=== PATIENT | female | born 2000 ===

== ENCOUNTER 2018-03-03 02:08 | Emergency (ER) | payer MEDICAID ==
--- NOTE | 2018-03-03 03:02 | OBHP ---
Datetime: 03/03/2018 02:50 IP Adm Impression: Postterm, intrauterine IP Admit Plan: Discharge home Admit Comment, IP Provider: 17 yo G1 at 40+3 wks w/ EDC 02/28/2018 by 9+ wk u/s who p/w ctxns that s tarted at 10pm, denies LOF, VB, and reports FM. Pt receices her PN care at [facility] in [place]. PMH: Healthy PSH: None Meds: PNV's All: NKDA Fam hx: M-lupus, HTN PGF DM Soc hx: Pt denies tobacco, alcohol, and illicit drugs [employer] hx: menarche at 6 yo, periods every 1-2 months, h/o chlamydia 01/2016 PE: Gen'l: appears comfortabel lying in stretcher Heart: RRR Chest: lungs CTA b/l Abd: soft, NT, gravid Ext: NT, no edema VE: closed/long/posterior A/P: 17 yo G1 at 40+3 wks w/ ctxns, not yet in labor NST reactive Pt discharged home w/ labor precautions Pt has an appoint at the clinic on , 03/03/2018 Rec that she call clinic on Sunday to schedule u/s for post-dates Extremities - PN: Normal Abdomen - PN: Normal Back - PN: Normal Lungs - PN: Normal Heart - PN: Normal General - PN: Normal FHR - Baseline A Provider: 130's Membranes, Provider: Intact Contraction Comments Provider: q3 EGA AdmitDate IP: 40.5 Vital Signs Provider: Reviewed IP Chief Complaint: Uterine contractions NICHD Variability Prov Fetus A: Moderate 6-25bpm NICHD Decel Fetus A IP Provider: None Dilatation, Provider: 0 Effacement, Provider: 0 Station, Provider: -3 Genitourinary Exam: Normal
[2018-03-03 07:10] VITALS: BP 119/64; PULSE 90
== END 2018-03-03 03:00 | disposition home or self-care (01) ==
LOC: H.EROB2 02:08 → H.EROB 02:15 → H.EROB2 03:00
DX: O47.1 False labor at or after 37 completed weeks of gestation (principal); Z3A.40 40 weeks gestation of pregnancy; O48.0 Post-term pregnancy

== ENCOUNTER 2018-03-03 22:44 | Inpatient (IN) | payer MEDICAID ==
[2018-03-04 00:15] VITALS: BMI 29.7
[2018-03-04] MEDS: Lactated Ringer's 1,000 ML IV SCH ×5 (00:27→08:50)
[2018-03-04 01:19] LABS: BASO % 0.1 % (0.0-2.0); HEMOGLOBIN 12.9 g/dL (12.0-16.0); LYMPH # 1.6 K/uL (1.0-4.3); LYMPH % 8.3 % (20.0-40.0); MEAN CELL VOLUME 84.9 fl (81.0-99.0); MEAN CORPUSCULAR HEMOGLOBIN 27.7 pg (27.0-31.0); MEAN CORPUSCULAR HGB CONC 32.6 g/dL (33.0-37.0); MEAN PLATELET VOLUME 9.8 fl (7.2-11.7); MONO # 0.8 K/uL (0.0-0.8); MONO % 4.2 % (0.0-10.0); NEUT # 16.7 K/uL (1.8-7.0); NEUT % 87.4 % (50.0-75.0); NRBC % 0.1 % (0.0-0.0); PLATELET COUNT 224 K/uL (130-400); RBC 4.64 Mil/uL (3.80-5.20); RED CELL DISTRIBUTION WIDTH 14.2 % (11.5-14.5); WHITE BLOOD COUNT 19.1 K/uL (4.8-10.8)
[2018-03-04] MEDS ORDERED: Fentanyl/Bupivacaine HCl 250 ML EPI ONE (01:47)
[2018-03-04 02:15] LABS: EOSINOPHIL 1 % (0-7); LYMPHOCYTE 7 % (20-50); MONOCYTE 6 % (0-10); NEUTROPHIL 84 % (42-75); REACTIVE LYMPHOCYTES 2 % (0-0); TOTAL CELLS COUNTED 100
[2018-03-04 02:16] LABS: PLATELET ESTIMATE NORMAL (NORMAL)
[2018-03-04 02:17] LABS: HYPOCHROMIC SLIGHT; POLYCHROMIC SLIGHT
[2018-03-04 02:18] LABS: LARGE PLATELETS PRESENT
[2018-03-04] MEDS ORDERED: Oxytocin 30 units/LR 500ML 30 U/500 ML BAG IV ONE ×2 (03:47→08:04)
--- NOTE | 2018-03-04 07:45 | OBADHP ---
Datetime: 03/04/2018 00:16 Admit Comment, IP Provider: CC: Ctx HPI: 17 YO @ 40.3wks IUP presents to [facility] for ctx. Per pt, ctx started last night and since t hen they have become more intense and more frequent. Pt was seen in [facility] this AM for ctx but was clos ed at that time, with occasional ctx. No LOF, good FM, no VB and + ctx. MD: Gay PMH: denies SurgH: denies FH: DM and HTN SH: denies ETOH, Smoking and illict drug use Allergies: bleach MEDs: PNV PE GEN: NAD Cardio: S1S2 no additional heart sounds Resp: clear breath sounds b/l Abdomen: BS+, NT, Gravid Neuro: AAO x 3 Ext: NT, no edema noted Cervx: 2-3/75/-3 bedside u/s: vertex A/P: 17 YO @ 40.3wks IUP is admitted for early labor, in pain. GBS neg, HIV neg, RPR neg. -admit patient L_D -IVF -blood work -anesthesiology consult for epidural -continue FM -vitals Pt progressing, cervix is effaced to 75-80%, continues to endorse pain with ctx. Will admit patien t. Start labor protocol. Will continue to monitor labor progression. Pt discussed with attending Dr. Christina Eduarda Kash, PGY I Addendum by Dr. Christina: I have evaluated the patient independently and I agree with the above Pelvic Type - PN: Adequate Extremities - PN: Normal Abdomen - PN: Normal Back - PN: Not Done Breast - PN: Not Done Lungs - PN: Normal Heart - PN: Normal Thyroid - PN: Not Done Neurologic - PN: Normal HEENT - PN: Normal General - PN: Normal FHR - Baseline A Provider: 140 Membranes, Provider: Intact Vital Signs Provider: Reviewed; Within Normal Limits NICHD Variability Prov Fetus A: Moderate 6-25bpm NICHD Accel Fetus A IP Provider: 15X15 FHR Category Provider Fetus A: Category I Dilatation, Provider: 2-3 Effacement, Provider: 75 Station, Provider: -3 Genitourinary Exam: Not Done DTRs - PN: Not Done EGA AdmitDate IP: 40.3 IP Adm Impression: Term, intrauterine Datetime: 03/03/2018 23:08 IP Chief Complaint: Uterine contractions; Suspected ruptured membranes IP Admit Plan: Observation/Evaluation Datetime: 03/03/2018 02:50 Contraction Comments Provider: q3 NICHD Decel Fetus A IP Provider: None
--- NOTE | 2018-03-04 08:50 | OBPN ---
Datetime: 03/04/2018 08:39 IP Progress Impression: Normal progression of labor IP Informed Consent Obtain: Vaginal Delivery IP Procedures: Sterile Vag Exam IP Progress Plan: Continue present management Contraction Comments Provider: q 4 FHR - Baseline A Provider: 140 IP Progress Note Comment: Patient evaluated and comfortable VE=8/100/-1 [id number] moce eliot, +accels, early decels A/P 1. Start Pitocin for augmentation 2. CEFM, TOCO 3. Re-evaluate as needed Vital Signs Provider: Reviewed; Within Normal Limits NICHD Accel Fetus A IP Provider: 15X15 NICHD Variability Prov Fetus A: Moderate 6-25bpm Dilatation, Provider: 8 Effacement, Provider: 100 Station, Provider: -1 NICHD Decel Fetus A IP Provider: Early Datetime: 03/04/2018 00:16 Membranes, Provider: Intact FHR Category Provider Fetus A: Category I
[2018-03-04] MEDS ORDERED: Oxycodone/Acetaminophen 5/325 mg Tab PO PRN ×3 (13:37→17:15)
[2018-03-04] MEDS: Oxycodone/Acetaminophen 5/325 mg Tab PO PRN (18:34)
[2018-03-05 06:24] LABS: BASO # 0.1 K/uL (0.0-0.2); BASO % 0.3 % (0.0-2.0); EOS % 0.1 % (0.0-4.0); LYMPH # 2.4 K/uL (1.0-4.3); LYMPH % 13.3 % (20.0-40.0); MEAN CELL VOLUME 84.4 fl (81.0-99.0); MEAN CORPUSCULAR HEMOGLOBIN 28.2 pg (27.0-31.0); MEAN CORPUSCULAR HGB CONC 33.4 g/dL (33.0-37.0); MEAN PLATELET VOLUME 8.9 fl (7.2-11.7); MONO # 1.4 K/uL (0.0-0.8); MONO % 8.2 % (0.0-10.0); NEUT # 13.9 K/uL (1.8-7.0); NEUT % 78.1 % (50.0-75.0); NRBC % 0.1 % (0.0-0.0); RBC 3.53 Mil/uL (3.80-5.20); RED CELL DISTRIBUTION WIDTH 14.2 % (11.5-14.5); WHITE BLOOD COUNT 17.7 K/uL (4.8-10.8)
[2018-03-05] MEDS ORDERED: Benzocaine/Menthol SPRAY ONE (21:21)
--- NOTE | 2018-03-05 23:09 | OBPPN ---
Datetime: 03/05/2018 06:46 PP Pain Prov: Within normal limits PP Nausea Prov: Denies PP Flatus Prov: No PP BM Prov: No PP Breasts Prov: Normal PP Heart Prov: Normal PP Lungs Prov: Normal PP Abdomen/Uterus Prov: Normal PP Lochia Prov: Normal PP Vulva/Perineum Prov: Normal PP CVA Tenderness Prov: Not Done PP Extremities Prov: Normal PP C/S Incision Prov: Not Applicable PP Progress Prov: Normal PP Impression Prov: Normal progression PP Plan Prov: Continue present management PP Progress Note Prov: S: 17 YO PPD1, s/p NVD. Pt is seen and examined by bedside this AM, baby and FOB by bedside. No acute overnight events. Pt is endorsing abdominal pain/soreness, but well con trolled with pain meds. Has ambulated to the bathroom with assistance. Bleeding has improved since cornelio, a little more then her menses. Tolerating PO diet. Has not yet had a BM and not yet passing flatus. Denies chest pain, dyspnea, n/v, fever/chills, diarrhea, nausea/vomiting, and calf pain. O: VS: wnl, afebrile GEN: Awake, alert and baby girl HEENT: EOMI, moist mucosa. LUNGS: CTA B/L, no wheezing, rhonci, or rales CVS: RRR, S1, S2 no murmurs ABD: ND, +BS, soft abdomen, firm fundus, below umbilicus. EXT: No edema, neg calf tenderness NEURO/PSYCHI: AAOx3, no grossly focal deficit, preserved affect and mood. Assessment/Plan: 17 YO PPD1, s/p VND on 03/04/18, gave to a baby girl. Pt remains afebril e, tolerating pain with medication, good PO intake and urinating without any difficulties. Doing well on PPD1. -C/w regular diet as tolerated. -OOB with caution SCDs for DVT prophylaxis -Ibuprofen 600 mg for pain prn -C/w Colace 100mg PO BID -Encourage and early ambulation. Eduarda Hewitt, PGY I OB Hospitalist note: Pt seen on rounds. Agree with PGY1 note MAHNDO Vital Signs Provider PP: Reviewed; Within Normal Limits
--- NOTE | 2018-03-06 07:51 | OBPPN ---
Datetime: 03/06/2018 05:48 PP Pain Prov: Within normal limits PP Nausea Prov: Denies PP Flatus Prov: Yes PP BM Prov: No PP Breasts Prov: Not Done PP Heart Prov: Normal PP Lungs Prov: Normal PP Abdomen/Uterus Prov: Normal PP Lochia Prov: Normal PP Vulva/Perineum Prov: Normal PP CVA Tenderness Prov: Not Done PP Extremities Prov: Normal PP C/S Incision Prov: Not Applicable PP Progress Prov: Normal PP Impression Prov: Normal progression PP Plan Prov: Continue present management; Discharge PP Progress Note Prov: S: 17 YO PPD2, s/p NVD. Pt is seen and examined this AM. FOB and baby by bedside. No acute overnight events. Pt is endorsing abdominal pain, but well controlled with pain me ds. Pt is ambulating without any difficulties. Bleeding is like menses now. Tolerating PO diet. - BM but passing flatus. Denies chest pain, dyspnea, n/v, fever/chills, diarrhea, nausea/vomiting, and ca lf pain. O: VS: wnl, afebrile GEN: Awake, alert and baby girl by bedside. Sleepy HEENT: EOMI, moist mucosa. LUNGS: CTA B/L, no wheezing, rhonci, or rales CVS: RRR, S1, S2 no murmurs ABD: ND, +BS, soft abdomen, firm fundus, below umbilicus. EXT: No edema, neg calf tenderness NEURO/PSYCHI: AAOx3, no grossly focal deficit, preserved affect and mood. Assessment/Plan: 17 YO PPD2, s/p VND on 03/04/18, gave to a baby girl. Pt remains afebril e, tolerating pain with medication, good PO intake and urinating without any difficulties. Doing well on PPD2. -C/w regular diet as tolerated. -OOB with caution SCDs for DVT prophylaxis -Ibuprofen 600 mg for pain prn -C/w Colace 100mg PO BID -Encourage and early ambulation. -will d/c pt home today -pp follow up in [facility], 6 weeks for PP visit and follow up for baby in 2-3 days Eduarda Hewitt, PGY I OB Hospitalist Addendum: Pt seen and examined by me. Agree w/ above. PPD 2 s/p , doing well, breast and bottle feeidng. Discharge home today. (ES) Vital Signs Provider PP: Reviewed; Within Normal Limits
--- NOTE | 2018-03-06 07:51 | OBDCSUM ---
Datetime: 03/06/2018 05:51 Discharged to, Provider: Home Follow up at, Provider: 6 wks Disch Instr Activity: Normal activity; May be up to bathroom; May be up for meals; May Shower Disch Instr Diet: Regular Discharge Instructions, Provider: Routine instructions given Discharge Diagnosis, Provider: Term Delivered Discharge Time: 03/06/2018 05:51 Follow up in weeks, Provider: [facility] Contraception discussed, Prov: Yes Disch Activity Restrictions: No exercising; No lifting; No driving; Minimize stair-climbing; No sexu al activity; Nothing in vagina - [place], tampons, douche Discharge Comment, Provider: 17 YO PPD2, s/p VND on 03/04/18, gave to a baby girl @40.4 wks IUP @ 12:53AM. of 9/9 and weight of 3125g. No complications during the post- period. Pt is tolerating PO diet, pain is well controlled, and ambulating without difficulties. PPD2. Discharge Instructions: 1.Encourage 2.PNV 1 tab po daily 3.Ibuprofen for mild-mod pain and colace for constipation. 4.ER precautions: If excessive bleeding or fever without relief from medication, go to ED 5.F/U in [place] in 1 wks for WC, 6 wks for PP visit and follow up in 2-3 days for baby. Eduarda Hewitt, PGY I Contraception after Delivery: Undecided
[2018-03-06] MEDS: Oxycodone/Acetaminophen 5/325 mg Tab PO PRN (09:29)
[2018-03-06 17:55] VITALS: BP 115/69; PULSE 110; RESP 19; TEMP 97.6; O2SAT 97
== END 2018-03-06 13:45 | disposition home or self-care (01) | DRG 373 ==
LOC: H.EROB2 22:44 → H.L&D 03-04 00:20 → H.OB/GYN 03-04 15:56
PROVIDERS: ADMIT Obstetrics & Gynecology; ATTEND Obstetrics & Gynecology
PROC: 10E0XZZ Delivery of Products of Conception, External Approach (ICD-10-PCS; principal; 2018-03-04)
PROC: 4A1HXCZ Monitoring of Products of Conception, Cardiac Rate, External Approach (ICD-10-PCS; 2018-03-04)
DX: O48.0 Post-term pregnancy (principal); Z3A.40 40 weeks gestation of pregnancy; Z37.0 Single live birth